=== PATIENT | female | born 1995 | race Two or more races ===

== ENCOUNTER 2019-10-19 11:59 | Emergency (ER) | payer SELFPAY ==
[~2019-10-19] VITALS: Ht 170.2 cm; Wt 50.0 kg
[2019-10-19 12:50] VITALS: BP 119/62
== END 2019-10-19 13:07 | disposition left against medical advice (07) ==
LOC: ER 11:59
DX: F41.9 Anxiety disorder, unspecified (principal); Z53.21 Procedure and treatment not carried out due to patient leaving prior to being seen by health care provider

== ENCOUNTER 2024-07-22 01:05 | Emergency (ER) | payer OTHER ==
[~2024-07-22] VITALS: Ht 170.2 cm; Wt 57.0 kg
[2024-07-22 01:44] VITALS: BP 119/72; PULSE 104; RESP 20; TEMP 97.8; O2SAT 97
[2024-07-22 02:29] LABS: CHLORIDE 105 mEq/L (98-107); POTASSIUM 3.9 mEq/L (3.5-5.1); SODIUM 138 mEq/L (136-145)
[2024-07-22 02:30] LABS: CARBON DIOXIDE 23 mEq/L (21-32)
[2024-07-22 02:31] LABS: CALCIUM 9.7 mg/dL (8.7-10.4)
[2024-07-22 02:35] LABS: GLUCOSE 102 mg/dL (70-105)
[2024-07-22 02:36] LABS: UREA NITROGEN BLOOD 6 mg/dL (9-23)
[2024-07-22 03:31] LABS: BASOPHILS % 0.3 % (0.0-2.0); EOSINOPHILS % 3.7 % (0.0-5.0); HEMATOCRIT. 44.6 % (36.0-48.0); HEMOGLOBIN. 14.9 g/dL (12.0-16.0); LYMPHOCYTES % 19.3 % (20.0-50.0); MEAN CORPUSCULAR HEMOGLOBIN 29.3 pg (28.0-32.0); MEAN CORPUSCULAR HGB CONC 33.5 g/dL (31.0-37.0); MEAN CORPUSCULAR VOLUME 87.3 fL (81.0-99.0); MEAN PLATELET VOLUME 11.2 fl (7.4-10.4); MONOCYTES % 6.7 % (2.0-8.0); PLATELET 209 x1000/uL (130-400); RED BLOOD CELL COUNT 5.11 mill/uL (4.2-5.4); RED CELL DISTRIBUTION WIDTH 13.5 % (11.6-14.6); WHITE BLOOD COUNT 12.9 x1000/uL (4.5-11.0)
[2024-07-22] MEDS ORDERED: IBUP-2028 MT (04:17)
[2024-07-22] MEDS ORDERED: PRED5TAB48 MT (04:17)
[2024-07-22] MEDS ORDERED: ALBU18HF2 IH (04:17)
[2024-07-22 04:50] LABS: HCG SCREEN NEGATIVE
== END 2024-07-22 04:58 | disposition home or self-care (01) ==
LOC: ER 01:05
DX: R11.2 Nausea with vomiting, unspecified (principal); R19.7 Diarrhea, unspecified; R53.81 Other malaise; F41.9 Anxiety disorder, unspecified; F32.9 Major depressive disorder, single episode, unspecified
CPT/HCPCS: 36415; 80048; 84703; 85025; 99283